=== PATIENT | female | born 1975 | race African-American/Black ===

== ENCOUNTER 2023-01-14 10:51 | Emergency (ER) | payer BC, SELFPAY | END 2023-01-14 13:06 | disposition home or self-care (01) | LOC: CSHERS 10:51 | DX: M25.511 Pain in right shoulder (principal); W18.39XA Other fall on same level, initial encounter ==

== ENCOUNTER 2025-09-21 23:23 | Emergency (ER) | payer BC, SELFPAY ==
[2025-09-22 00:18] LABS: Glucose, Urine (Dipstick) Normal (Negative); Leukocyte Negative (Negative); Protein, Urine (Dipstick) 15 mg/dl (Neg-Trace); Specific Gravity, Urine 1.015 (1.005-1.030)
[2025-09-22 00:24] LABS: #Basophils 0.13 10x3/uL (0.0-0.2); #Eosinophils 0.18 10x3/uL (0.0-0.5); #Monocytes 0.87 10x3/uL (0.0-1.1); #Neutrophils 9.50 10x3/uL (1.5-8.4); %Basophils 0.9 % (0.0-2.0); %Eosinophils 1.3 % (0.0-6.0); %Lymphocytes 24.5 % (18.0-47.0); %Monocytes 6.1 % (0.0-10.0); %Neutrophils 67.0 % (40.0-75.0); Hematocrit 39.4 % (34.9-44.5); Hemoglobin 13.2 g/dL (12.0-15.5); Mean Corpuscular Hemoglobin 28.4 pg (27.0-33.0); Mean Corpuscular Volume 84.9 fL (81.6-98.3); Platelet Count 411 10x3/uL (150-450); Red Blood Cell (RBC) Count 4.64 10x6/uL (3.90-5.03); White Blood Cell (WBC) Count 14.19 10x3/uL (3.5-10.5)
[2025-09-22 00:36] LABS: ALT (SGPT) 13 U/L (Less than 34); AST (SGOT) 17 U/L (11-34); Albumin 3.9 g/dL (3.1-4.5); Alkaline Phosphatase 93 U/L (40-110); Anion Gap 15 mmol/L (10-20); BUN (Urea Nitrogen) 13 mg/dL (7.0-18.7); Bilirubin, Total 0.4 mg/dL (0.3-1.2); Calc. Creatinine Clearance 0 mL/min (70-130); Calcium 8.7 mg/dL (7.8-10.44); Carbon Dioxide 22 mmol/L (22-29); Chloride 104 mmol/L (98-107); Globulin 3.5 g/dL (2.4-3.5); Glucose 110 mg/dL (70-105); Potassium 3.8 mmol/L (3.5-5.1); Sodium 137 mmol/L (136-145)
[2025-09-22 00:38] LABS: Bacteria/HPF 1+ HPF (None Seen); CAUTI Indications for Culture Acute Hematuria; RBC/HPF 0-3 HPF (0-3); WBC/HPF 0-3 HPF (0-3)
[2025-09-22 00:40] LABS: Urine Culture Reflex No No
[2025-09-22 01:01] LABS: Troponin I Less than 0.010 ng/mL (< 0.028)
== END 2025-09-22 01:40 | disposition home or self-care (01) ==
LOC: CSHERS 23:23
DX: I16.0 Hypertensive urgency (principal); F41.1 Generalized anxiety disorder
CPT/HCPCS: 80053; 81001; 83605; 83880; 84484; 85025; 93005; 96374; J3360